=== PATIENT | female | born 1965 | race Caucasian/White ===

== ENCOUNTER 2018-09-25 11:14 | Emergency (ER) | payer OTHER ==
[2018-09-25 11:23] VITALS: BP 125/84; PULSE 84; RESP 18; TEMP 97.6
[2018-09-25] MEDS ORDERED: ACETAMINOPHEN TAB 500 MG TAB PO STA (11:33)
--- NOTE | 2018-09-25 12:04 | ED ---
General Adult HPI - General Chief complaint: Head Injury Stated complaint: head injury Time Seen by Provider: 09/25/18 11:20 Source: patient, RN notes reviewed Mode of arrival: ambulatory Limitations: no limitations - History of Present Illness Initial comments: This is a 52-year-old female who presents to the emergency department complaining that she walked into a 4 x 4 and it knocked the ground. Patient states she did not lose consciousness but she was dazed after she had hit her head. Patient states she has no current headache but just feels a little off. Patient denies any neck pain patient denies numbness weakness. Patient has any injury from the fall. Patient states she struck the 4 x 4 with her forehead on the right side. The 4 x 4 was not moving she was only walking at the time. - Related Data Home Medications Medication Instructions Recorded Confirmed No Known Home Medications 09/25/18 09/25/18 Allergies Allergy/AdvReac Type Severity Reaction Status Date / Time No Known Allergies Allergy Verified 09/25/18 11:54 Review of Systems ROS Statement: Those systems with pertinent positive or pertinent negative responses have been documented in the HPI. ROS Other: All systems not noted in ROS Statement are negative. Past Medical History Past Medical History: No Reported History History of Any Multi-Drug Resistant Organisms: None Reported Past Surgical History: Cholecystectomy Additional Past Surgical History / Comment(s): Shoulder Past Psychological History: No Psychological Hx Reported Smoking Status: Never smoker Past Alcohol Use History: None Reported Past Drug Use History: None Reported General Exam - General Exam Comments Initial Comments: GENERAL: Patient is well-developed and well-nourished. Patient is nontoxic and well- hydrated and is in mild distress. Forehead is mildly tender to palpation no swelling or hematoma noted no abrasion noted ENT: Neck is soft and supple. No significant lymphadenopathy is noted. Oropharynx is clear. Moist mucous membranes. Neck has full range of motion without eliciting any pain. EYES: The sclera were anicteric and conjunctiva were pink and moist. Extraocular movements were intact and pupils were equal round and reactive to light. Eyelids were unremarkable. PULMONARY: Unlabored respirations. Good breath sounds bilaterally. No audible rales rhonchi or wheezing was noted. CARDIOVASCULAR: There is a regular rate and rhythm without any murmurs gallops or rubs. ABDOMEN: Soft and nontender with normal bowel sounds. SKIN: Skin is clear with no lesions or rashes and otherwise unremarkable. NEUROLOGIC: Patient is alert and oriented x3. Cranial nerves II through XII are grossly intact. Motor and sensory are also intact. Normal speech, volume and content. Symmetrical smile. MUSCULOSKELETAL: Normal extremities with adequate strength and full range of motion. LYMPHATICS: No significant lymphadenopathy is noted PSYCHIATRIC: Normal psychiatric evaluation. Limitations: no limitations Course Vital Signs 09/25/18 11:20 Temperature 97.6 F Pulse Rate 84 Respiratory 18 Rate Blood Pressure 125/84 O2 Sat by Pulse 99 Oximetry Medical Decision Making - Medical Decision Making CT of the head shows no acute abnormality. Patient has no headache and no neurologic deficit Disposition Clinical Impression: Closed head injury Disposition: HOME SELF-CARE Condition: Good Instructions (If sedation given, give patient instructions): How to Use and Care for Your PEG Tube (ED), Head Injury (ED) Is patient prescribed a controlled substance at d/c from ED?: No Referrals: Da Haile MD [Primary Care Provider] - 1-2 days Time of Disposition: 12:39
--- NOTE | 2018-09-25 12:27 | CT ---
EXAMINATION TYPE: CT brain wo con DATE OF EXAM: 09/25/2018 COMPARISON: 04/26/2010 INDICATION: Right frontal injury without LOC DLP: 1083.4 mGycm, Automated exposure control for dose reduction was used. CONTRAST: None CT of the brain is performed utilizing 3 mm thick sections through the posterior fossa and 3 mm thick sections through the remaining calvarium. Study is performed within 24 hours of arrival to the hosp ital. No abnormal hyperdensity is present to suggest an acute intracranial hemorrhage. No mass lesion is evident. No acute infarcts are evident. Ventricles and sulci are appropriate for the patient age. Paranasal sinuses and mastoid air cells within the [id number] are clear. No acute fractures are evident. IMPRESSIONS: 1. Normal CT Brain
== END 2018-09-25 12:57 | disposition home or self-care (01) ==
LOC: EC 11:14
DX: S09.90XA Unspecified injury of head, initial encounter (principal); W22.8XXA Striking against or struck by other objects, initial encounter; Y93.01 Activity, walking, marching and hiking
CPT/HCPCS: 70450; 99283

== ENCOUNTER 2019-03-29 13:10 | Observation (INO) | payer OTHER ==
[2019-03-29] MEDS ORDERED: ASPIRIN 81 MG PO STA (14:21)
[2019-03-29] MEDS ORDERED: NITROGLYCERIN OINT 1 INCH/GM PACKET TOPICAL STA (14:21)
--- NOTE | 2019-03-29 14:25 | ED ---
General Adult HPI - General Chief complaint: Chest Pain Stated complaint: Chest Pain Time Seen by Provider: 03/29/19 14:05 Source: patient, RN notes reviewed Mode of arrival: ambulatory Limitations: no limitations - History of Present Illness Initial comments: Patient is a pleasant 53-year-old female presenting to the emergency department chest discomfort. Onset of symptoms was around 10 AM while at work. Symptoms have improved however not completely resolved. Symptoms are only mild at this time. Discomfort is described as heaviness in the chest. There is some numbness of the left arm. Patient states there was some numbness of face earlier. No confusion or weakness. No speech problems. Patient did feel a little bit nauseated and sweaty earlier. Patient does have some associated dyspnea. No history of similar symptoms previously. Patient states her mother just had her stents placed yesterday. - Related Data Home Medications Medication Instructions Recorded Confirmed Naproxen Sodium [Aleve] 440 mg PO DAILY PRN 03/29/19 03/29/19 Allergies Allergy/AdvReac Type Severity Reaction Status Date / Time No Known Allergies Allergy Verified 03/29/19 14:10 Review of Systems ROS Statement: Those systems with pertinent positive or pertinent negative responses have been documented in the HPI. ROS Other: All systems not noted in ROS Statement are negative. Constitutional: Denies: fever Eyes: Denies: eye pain ENT: Denies: ear pain Respiratory: Reports: dyspnea. Denies: cough Cardiovascular: Reports: chest pain Endocrine: Denies: fatigue Gastrointestinal: Reports: nausea. Denies: abdominal pain Genitourinary: Denies: dysuria Musculoskeletal: Denies: back pain Skin: Denies: rash Neurological: Reports: paresthesias. Denies: headache, weakness, confusion Past Medical History Past Medical History: No Reported History History of Any Multi-Drug Resistant Organisms: None Reported Past Surgical History: Cholecystectomy Additional Past Surgical History / Comment(s): Shoulder Past Psychological History: No Psychological Hx Reported Smoking Status: Never smoker Past Alcohol Use History: None Reported Past Drug Use History: None Reported General Exam Limitations: no limitations General appearance: alert, in no apparent distress Head exam: Present: normocephalic Eye exam: Present: normal appearance, PERRL ENT exam: Present: normal oropharynx Neck exam: Present: normal inspection Respiratory exam: Present: normal lung sounds bilaterally. Absent: chest wall tenderness Cardiovascular Exam: Present: regular rate, normal rhythm Expanded Peripheral pulses: 2+: Radial (R), Radial (L), Posterior Tibialis (R), Posterior Tibialis (L), Dorsalis Pedis (R), Dorsalis Pedis (L) GI/Abdominal exam: Present: soft. Absent: distended, tenderness Extremities exam: Present: normal inspection. Absent: pedal edema, calf tenderness Neurological exam: Present: alert, oriented X3, CN II-XII intact. Absent: motor sensory deficit Expanded Neurological exam: Present: protecting the airway Patient oriented to: Present: person, place, time Speech: Present: fluid speech Cranial nerves: EOM's Intact: Normal, Facial Sensation: Normal Sensory exam: Upper Extremity Light Touch: Normal, Lower Extremity Light Touch: Normal Motor strength exam: RUE: 5, LUE: 5, RLE: 5, LLE: 5 Eye Response: (4) open spontaneously Motor Response: (6) obeys commands Verbal Response: (5) oriented Psychiatric exam: Present: normal affect, normal mood Skin exam: Present: normal color Course Vital Signs 03/29/19 03/29/19 03/29/19 13:38 14:00 14:49 Temperature 98.0 F Pulse Rate 57 L 57 L Pulse Rate [ 65 Vice President Of Compliance ] Respiratory 18 18 Rate Blood Pressure 139/78 135/79 O2 Sat by Pulse 100 100 Oximetry EKG Findings - EKG Comments: EKG Findings:: Sinus bradycardia with a rate of 52. Sinus arrhythmia. IA 148. QRS 82. QT 446. QTc 414. Normal axis. Low QRS voltage. No acute ST change. Medical Decision Making - Medical Decision Making Patient reevaluated and resting comfortably in bed. Patient and family updated on results and plan. Case was discussed in detail with Dr. Haile, who will admit his patient. Cardiology consult will be placed. - Lab Data Result diagrams: 03/29/19 14:15 03/29/19 14:15 Lab Results 03/29/19 03/29/19 03/29/19 Range/Units 14:15 14:15 14:15 WBC 7.4 (3.8-10.6) k/uL RBC 4.29 (3.80-5.40) m/uL Hgb 12.8 (11.4-16.0) gm/dL Hct 39.4 (34.0-46.0) % MCV 91.8 (80.0-100.0) fL MCH 29.8 (25.0-35.0) pg MCHC 32.5 (31.0-37.0) g/dL RDW 13.1 (11.5-15.5) % Plt Count 307 (150-450) k/uL Neutrophils % 60 % Lymphocytes % 30 % Monocytes % 5 % Eosinophils % 1 % Basophils % 1 % Neutrophils # 4.5 (1.3-7.7) k/uL Lymphocytes # 2.3 (1.0-4.8) k/uL Monocytes # 0.4 (0-1.0) k/uL Eosinophils # 0.1 (0-0.7) k/uL Basophils # 0.1 (0-0.2) k/uL PT 9.7 (9.0-12.0) sec INR 0.9 (<1.2) APTT 26.6 (22.0-30.0) sec D-Dimer 0.51 (<0.60) mg/L FEU Sodium 139 (137-145) mmol/L Potassium 4.3 (3.5-5.1) mmol/L Chloride 106 (98-107) mmol/L Carbon Dioxide 22 (22-30) mmol/L Anion Gap 11 mmol/L BUN 13 (7-17) mg/dL Creatinine 0.68 (0.52-1.04) mg/dL Est GFR (CKD-EPI)AfAm >90 (>60 ml/min/1.73 sqM) Est GFR (CKD-EPI)NonAf >90 (>60 ml/min/1.73 sqM) Glucose 68 L (74-99) mg/dL Calcium 9.2 (8.4-10.2) mg/dL Magnesium 2.1 (1.6-2.3) mg/dL Total Bilirubin 0.9 (0.2-1.3) mg/dL AST 31 (14-36) U/L ALT 17 (9-52) U/L Alkaline Phosphatase 65 (38-126) U/L Troponin I (0.000-0.034) ng/mL Total Protein 7.7 (6.3-8.2) g/dL Albumin 4.5 (3.5-5.0) g/dL 03/29/19 Range/Units 14:15 WBC (3.8-10.6) k/uL RBC (3.80-5.40) m/uL Hgb (11.4-16.0) gm/dL Hct (34.0-46.0) % MCV (80.0-100.0) fL MCH (25.0-35.0) pg MCHC (31.0-37.0) g/dL RDW (11.5-15.5) % Plt Count (150-450) k/uL Neutrophils % % Lymphocytes % % Monocytes % % Eosinophils % % Basophils % % Neutrophils # (1.3-7.7) k/uL Lymphocytes # (1.0-4.8) k/uL Monocytes # (0-1.0) k/uL Eosinophils # (0-0.7) k/uL Basophils # (0-0.2) k/uL PT (9.0-12.0) sec INR (<1.2) APTT (22.0-30.0) sec D-Dimer (<0.60) mg/L FEU Sodium (137-145) mmol/L Potassium (3.5-5.1) mmol/L Chloride (98-107) mmol/L Carbon Dioxide (22-30) mmol/L Anion Gap mmol/L BUN (7-17) mg/dL Creatinine (0.52-1.04) mg/dL Est GFR (CKD-EPI)AfAm (>60 ml/min/1.73 sqM) Est GFR (CKD-EPI)NonAf (>60 ml/min/1.73 sqM) Glucose (74-99) mg/dL Calcium (8.4-10.2) mg/dL Magnesium (1.6-2.3) mg/dL Total Bilirubin (0.2-1.3) mg/dL AST (14-36) U/L ALT (9-52) U/L Alkaline Phosphatase (38-126) U/L Troponin I <0.012 (0.000-0.034) ng/mL Total Protein (6.3-8.2) g/dL Albumin (3.5-5.0) g/dL - Radiology Data Radiology results: image reviewed (Chest x-ray shows no acute process) Disposition Clinical Impression: Chest pain Disposition: ADMITTED IP TO THIS HOSP Is patient prescribed a controlled substance at d/c from ED?: No Referrals: Da Haile MD [Primary Care Provider] - 1-2 days Decision Time: 16:39
--- NOTE | 2019-03-29 14:37 | XR ---
EXAMINATION TYPE: XR chest 2V DATE OF EXAM: 03/29/2019 COMPARISON: None HISTORY: 53-year-old female with chest pain TECHNIQUE: PA and lateral views FINDINGS: The cardiomediastinal silhouette, aorta, and pulmonary vasculature are within normal limits. Lungs an d pleural spaces are clear. IMPRESSION: No acute cardiopulmonary process.
[2019-03-29 16:04] LABS: ALT 17 U/L (9-52); AST 31 U/L (14-36); African American GFR (CKD) >90 (>60 ml/min/1.73 sqM); Albumin 4.5 g/dL (3.5-5.0); Alkaline Phosphatase 65 U/L (38-126); Anion Gap 11 mmol/L; Blood Urea Nitrogen 13 mg/dL (7-17); Calcium 9.2 mg/dL (8.4-10.2); Carbon Dioxide 22 mmol/L (22-30); Chloride 106 mmol/L (98-107); Glucose 68 mg/dL (74-99); Magnesium 2.1 mg/dL (1.6-2.3); Non-African American GFR(CKD) >90 (>60 ml/min/1.73 sqM); Sodium 139 mmol/L (137-145); Total Bilirubin 0.9 mg/dL (0.2-1.3); Total Protein 7.7 g/dL (6.3-8.2)
[2019-03-29 16:16] LABS: Potassium 4.3 mmol/L (3.5-5.1)
[2019-03-29 16:17] LABS: D-Dimer 0.51 mg/L FEU (<0.60); INR 0.9 (<1.2); Partial Thromboplastin Time 26.6 sec (22.0-30.0); Prothrombin Time 9.7 sec (9.0-12.0)
[2019-03-29 16:21] LABS: Basophils # (A) 0.1 k/uL (0-0.2); Basophils % (A) 1 %; Eosinophils # (A) 0.1 k/uL (0-0.7); Eosinophils % (A) 1 %; HCT 39.4 % (34.0-46.0); HGB 12.8 gm/dL (11.4-16.0); Lymphocytes # (A) 2.3 k/uL (1.0-4.8); Lymphocytes % (A) 30 %; MCH 29.8 pg (25.0-35.0); MCHC 32.5 g/dL (31.0-37.0); MCV 91.8 fL (80.0-100.0); Mean Platelet Volume 6.9; Monocytes # (A) 0.4 k/uL (0-1.0); Monocytes % (A) 5 %; Neutrophils # (A) 4.5 k/uL (1.3-7.7); Neutrophils % (A) 60 %; Platelet Count 307 k/uL (150-450); RBC 4.29 m/uL (3.80-5.40); RDW 13.1 % (11.5-15.5); WBC 7.4 k/uL (3.8-10.6)
[2019-03-29] MEDS ORDERED: NITROGLYCERIN SL TABS 0.4 MG TAB SUBLINGUAL PRN (16:40)
[2019-03-29] MEDS: NITROGLYCERIN OINT 1 INCH/GM PACKET TOPICAL SCH ×2 (17:28→23:32)
[2019-03-29] MEDS ORDERED: ACETAMINOPHEN TAB 325 MG TAB PO PRN (19:54)
[2019-03-30 03:03] LABS: Cholesterol 163 mg/dL (<200); HDL Cholesterol 45 mg/dL (40-60); LDL Cholesterol,Calculated 89 mg/dL (0-99); Triglycerides 144 mg/dL (<150)
[2019-03-30] MEDS: NITROGLYCERIN OINT 1 INCH/GM PACKET TOPICAL SCH (05:07)
[2019-03-30 08:03] VITALS: RESP 16
[2019-03-30] MEDS ORDERED: ASPIRIN 325 MG TAB PO SCH (09:00)
[2019-03-30 11:57] VITALS: BP 96/65; TEMP 97.8
[2019-03-30 12:24] VITALS: PULSE 53
--- NOTE | 2019-03-30 12:34 | CT ---
EXAMINATION TYPE: CT brain wo con DATE OF EXAM: 03/30/2019 COMPARISON: 09/25/2018 HISTORY: 53-year-old female Left side weakness TECHNIQUE: Examination was done in axial plane without intravenous contrast. Coronal and sagittal r econstructions performed. CT DLP: 1068.4 mGycm Automated exposure control for dose reduction was used. FINDINGS: There is no evidence of acute intracranial hemorrhage, acute ischemic changes, mass, mass-effect, or extra-axial fluid collection. There is no effacement of cerebral sulci or basal subarachnoid cister ns. There is no hydrocephalus. There is no midline shift. Byrd-white matter distinction is preserv ed. Paranasal sinuses and mastoid air cells well pneumatized. Orbits and globes are intact. IMPRESSION: No acute intracranial abnormality seen. If symptoms persist, follow-up CT or MRI.
--- NOTE | 2019-03-30 13:05 | P.CRDCN ---
History of Present Illness History of present illness: This is a pleasant 53-year-old female past medical history former nicotine dependence. She denies prior history of coronary artery disease, hypertension, dyslipidemia or diabetes mellitus. She does not follow with a bi data architect for any reason. We have been asked to see her in consultation secondary to chest discomfort. She states she woke up yesterday morning feeling essentially normal however as her day progressed she felt increasingly fatigued even she had a decent night's sleep. She then noticed a numb tingling sensation in the left side of her face and down her left arm. At just about the same time she felt a heaviness in the midsternal portion of her chest associated with nausea and diaphoresis and some rapid heartbeat. Chest discomfort was intermittent initially however has become more constant last night. This morning the chest pain has resolved however she continues to have numbness and tingling in the left hand. EKG reveals sinus bradycardia heart rate of 52. Chest x-ray is negative for an acute cardiopulmonary process. Laboratory data reviewed, CBC unremarkable, d-dimer 0.51, cardiac enzymes negative 3, magnesium 2.1, creatinine 0.68, sodium 139, potassium 4.3 and LDL 89. She takes no daily cardiac medications. At the time of my exam: CONSTITUTIONAL: Denies fever. Denies chills. EYES: Denies blurred vision. Denies vision changes. Denies eye pain. EARS, NOSE, MOUTH & THROAT: Denies headache. Denies sore throat. Denies ear pain. CARDIOVASCULAR: Denies chest pain. Denies shortness of breath. Denies orthopnea. Denies PND. Denies palpitations. RESPIRATORY: Denies cough. GASTROINTESTINAL: Denies abdominal pain. Denies diarrhea. Denies constipation. Denies nausea. Denies vomiting. MUSCULOSKELETAL: Complains of left hand numbness and tingling. INTEGUMENTARY: Denies pruitis. Denies rash. NEUROLOGIC: Denies numbness. Denies tingling. Denies weakness. PSYCHIATRIC: Denies anxiety. Denies depression. ENDOCRINE: Denies fatigue. Denies weight change. Denies polydipsia. Denies polyurina. GENITOURINARY: Denies burning, hematuria or urgency with micturation. HEMATOLOGIC: Denies history of anemia. Denies bleeding. Blood pressure 96/65 heart rate 66 afebrile maintaining oxygen saturation on room air GENERAL: This is a 53-year-old female in no apparent distress at the time of my examination. HEENT: Head is atraumatic, normocephalic. Pupils are equal, round. Sclerae anicteric. Conjunctivae are clear. Mucous membranes of the mouth are moist. Neck is supple. There is no jugular venous distention. No carotid bruit is heard. LUNGS: Clear to auscultation no wheezes, rales or rhonchi. No chest wall tenderness is noted on palpation or with deep breathing. HEART: Regular rate and rhythm without murmurs, rubs or gallops. S1 and S2 heard. ABDOMEN: Soft, nontender. Bowel sounds are heard. No organomegaly noted. EXTREMITIES: No evidence of peripheral edema and no calf tenderness noted. VASCULAR: Radial and dorsalis pedis pulses palpated, no evidence of clubbing. NEUROLOGIC: Patient is awake, alert and oriented x3. ASSESSMENT Chest pain, atypical. An acute coronary event has been ruled out. PLAN Perform stress echocardiogram to assess her stress induced cardiac ischemia. Medical evaluation by the primary care team regarding left-sided numbness and tingling. If stress test is normal she is stable from a cardiac perspective. Thank you kindly for this consultation. Nurse Practitioner note has been reviewed, I agree with a documented findings and plan of care. Patient was seen and examined. Past Medical History Past Medical History: No Reported History History of Any Multi-Drug Resistant Organisms: None Reported Past Surgical History: Cholecystectomy Additional Past Surgical History / Comment(s): Shoulder Past Psychological History: No Psychological Hx Reported Smoking Status: Former smoker Past Alcohol Use History: None Reported Past Drug Use History: None Reported Medications and Allergies Home Medications Medication Instructions Recorded Confirmed Type Naproxen Sodium [Aleve] 440 mg PO DAILY PRN 03/29/19 03/29/19 History Allergies Allergy/AdvReac Type Severity Reaction Status Date / Time No Known Allergies Allergy Verified 03/29/19 14:10 Physical Exam Vitals: Vital Signs Temp Pulse Pulse Pulse Resp BP BP 03/30/19 07:25 97.9 F 57 L 16 97/58 03/30/19 04:00 98.1 F 53 L 18 93/53 03/30/19 03:28 18 03/30/19 00:00 18 03/29/19 23:22 98.3 F 68 18 100/62 03/29/19 20:00 18 03/29/19 17:53 97.5 F L 56 L 18 128/78 03/29/19 17:00 56 L 18 114/69 03/29/19 14:49 57 L 18 135/79 03/29/19 14:00 65 03/29/19 13:38 98.0 F 57 L 18 139/78 Pulse Ox 03/30/19 07:25 97 03/30/19 04:00 98 03/30/19 03:28 03/30/19 00:00 03/29/19 23:22 98 03/29/19 20:00 03/29/19 17:53 100 03/29/19 17:00 98 03/29/19 14:49 100 03/29/19 14:00 03/29/19 13:38 100 Intake and Output 03/29/19 03/30/19 03/30/19 22:59 06:59 14:59 Intake Total 600 Balance 600 Intake: Oral 600 Other: # Voids 1 Results 03/29/19 14:15 03/29/19 14:15 Cardiac Enzymes 03/29/19 03/29/19 03/29/19 Range/Units 14:15 14:15 20:33 AST 31 (14-36) U/L Troponin I <0.012 <0.012 (0.000-0.034) ng/mL 03/30/19 Range/Units 02:20 AST (14-36) U/L Troponin I <0.012 (0.000-0.034) ng/mL Coagulation 03/29/19 Range/Units 14:15 PT 9.7 (9.0-12.0) sec APTT 26.6 (22.0-30.0) sec Lipids 03/30/19 Range/Units 02:20 Triglycerides 144 (<150) mg/dL Cholesterol 163 (<200) mg/dL HDL Cholesterol 45 (40-60) mg/dL CBC 03/29/19 Range/Units 14:15 WBC 7.4 (3.8-10.6) k/uL RBC 4.29 (3.80-5.40) m/uL Hgb 12.8 (11.4-16.0) gm/dL Hct 39.4 (34.0-46.0) % Plt Count 307 (150-450) k/uL Comprehensive Metabolic Panel 03/29/19 Range/Units 14:15 Sodium 139 (137-145) mmol/L Potassium 4.3 (3.5-5.1) mmol/L Chloride 106 (98-107) mmol/L Carbon Dioxide 22 (22-30) mmol/L BUN 13 (7-17) mg/dL Creatinine 0.68 (0.52-1.04) mg/dL Glucose 68 L (74-99) mg/dL Calcium 9.2 (8.4-10.2) mg/dL AST 31 (14-36) U/L ALT 17 (9-52) U/L Alkaline Phosphatase 65 (38-126) U/L Total Protein 7.7 (6.3-8.2) g/dL Albumin 4.5 (3.5-5.0) g/dL Current Medications Generic Name Dose Route Start Last Admin Trade Name Freq PRN Reason Stop Dose Admin Acetaminophen 650 mg 03/29/19 19:54 Tylenol Tab PO Q4HR PRN Fever and/ or Mild Pain Aspirin 325 mg 03/30/19 09:00 Aspirin PO DAILY BRANDAN Nitroglycerin 0.4 mg 03/29/19 16:40 03/29/19 20:02 Nitrostat SUBLINGUAL 0.4 mg Q5M PRN Administration Chest Pain Nitroglycerin 1 inch 03/29/19 18:00 03/30/19 05:07 Nitro-Bid Oint TOPICAL 1 inch Q6HR BRANDAN Administration Intake and Output 03/29/19 03/30/19 03/30/19 22:59 06:59 14:59 Intake Total 600 Balance 600 Intake: Oral 600 Other: # Voids 1 03/29/19 14:15 03/29/19 14:15
--- NOTE | 2019-03-30 13:16 | XR ---
EXAMINATION TYPE: XR cervical spine comp DATE OF EXAM: 03/30/2019 TECHNIQUE: Frontal, lateral, oblique, swimmers, and open mouth view of the cervical spine are obtaine d. HISTORY: left neck pain COMPARISON: None FINDINGS: The cervical spine is visualized in its entirety from C1 thru the top of T1 level, it is s atisfactory in alignment without evidence of acute fracture or dislocation. The pre-vertebral soft t issue appears within normal limits. Small anterior osteophytes and intervertebral disc space narrowi ng are seen at C6-C7. The C1-C2 articulation is within normal limits on the open mouth view. The obl ique images are within normal limits. IMPRESSION: No acute fracture or dislocation is seen in the cervical spine. Mild degenerative disc d isease at C6-C7.
--- NOTE | 2019-03-30 16:14 | P.HPIM ---
History of Present Illness H&P Date: 03/30/19 Chief Complaint: Chest pain HISTORY AND PHYSICAL AND DISCHARGE SUMMARY: This is a 53-year-old female patient of Dr. Stuart Haile with past medical history of back pain. 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 She complains of left-sided neck pain as well and weakness in her left arm which is her dominant arm. She admits to increased stress with her business as well as with her parents medical issue s. Patient came into [facility] emergency center for evaluation. Troponins negative on 3 draws. Troponin 144, cholesterol 163, total DL 89, HDL 45. EKG is a sinus bradycardia. Chest x-ray shows no acute findings. CT of the brain showed no acute intracranial abnormality. Cervical x-ray showed no acute fracture or dislocation. Mild degenerative disc disease at C6-C7. Patient was seen by cardiology and underwent a stress echo which was negative and patient was cleared for discharge home. No medication changes have been made. Review of Systems Constitutional: Denies chills, Denies fatigue, Denies fever, Denies lethargy, Denies malaise, Denies poor appetite, Denies weight loss Eyes: denies blurred vision, denies pain Ears, nose, mouth and throat: Denies headache, Denies nasal discharge, Denies sore throat, Denies vertigo Cardiovascular: Reports chest pain, Denies decreased exercise tolerance, Denies dyspnea on exertion, Denies edema, Denies irregular heart beat, Denies leg edema, Denies lightheadedness, Denies palpitations, Denies shortness of breath, Denies syncope Respiratory: Denies cough, Denies cough with sputum, Denies dyspnea, Denies excessive sputum, Denies hemoptysis, Denies home oxygen, Denies wheezing Gastrointestinal: Denies abdominal pain, Denies bloating, Denies diarrhea, Chase es loss of appetite, Denies melena, Denies nausea, Denies vomiting Genitourinary: Denies dysuria, Denies hematuria, Denies urinary frequency Musculoskeletal: Denies frequent falls, Denies gait dysfunction, Denies muscle weakness, Denies myalgias Integumentary: Denies pruritus, Denies rash, Denies wounds Neurological: Denies change in mentation, Denies change in speech, Denies numbness, Denies weakness Psychiatric: Denies anxiety, Denies depression Endocrine: Denies fatigue, Denies weight change Past Medical History Past Medical History: No Reported History History of Any Multi-Drug Resistant Organisms: None Reported Past Surgical History: Cholecystectomy Additional Past Surgical History / Comment(s): Shoulder Past Psychological History: No Psychological Hx Reported Smoking Status: Former smoker Past Alcohol Use History: None Reported Past Drug Use History: None Reported - Past Family History Father Additional Family Medical History / Comment(s): Father is age 82 with history of 3 coronary stents. Mother Additional Family Medical History / Comment(s): Mother is alive at age 80 with history of coronary artery disease and non-ST elevated MS. Brother(s) Additional Family Medical History / Comment(s): Patient has 2 brothers and one his had Munoz's palsy. Patient does not have any sisters. No children. Medications and Allergies Home Medications Medication Instructions Recorded Confirmed Type Naproxen Sodium [Aleve] 440 mg PO DAILY PRN 03/29/19 03/29/19 History Allergies Allergy/AdvReac Type Severity Reaction Status Date / Time No Known Allergies Allergy Verified 03/29/19 14:10 Physical Exam Vitals: Vital Signs Temp Pulse Pulse Pulse Resp BP BP 03/30/19 08:00 53 L 57 L 16 03/30/19 07:25 97.9 F 57 L 16 97/58 03/30/19 04:00 98.1 F 53 L 18 93/53 03/30/19 03:28 18 03/30/19 00:00 18 03/29/19 23:22 98.3 F 68 18 100/62 03/29/19 20:00 18 03/29/19 17:53 97.5 F L 56 L 18 128/78 03/29/19 17:00 56 L 18 114/69 03/29/19 14:49 57 L 18 135/79 03/29/19 14:00 65 03/29/19 13:38 98.0 F 57 L 18 139/78 Pulse Ox 03/30/19 08:00 03/30/19 07:25 97 03/30/19 04:00 98 03/30/19 03:28 03/30/19 00:00 03/29/19 23:22 98 03/29/19 20:00 03/29/19 17:53 100 03/29/19 17:00 98 03/29/19 14:49 100 03/29/19 14:00 03/29/19 13:38 100 Intake and Output 03/29/19 03/30/19 03/30/19 22:59 06:59 14:59 Intake Total 600 Balance 600 Intake: Oral 600 Other: Voiding Method Toilet # Voids 1 Gen: This is a 53-year-old female. Patient is resting bed appears to be comfortable and in no acute distress. HEENT: Head is atraumatic, normocephalic. Pupils equal, round. Sclerae is anicteric. NECK: Supple. No JVD. No lymphadenopathy. No thyromegaly. LUNGS: Clear to auscultation. No wheezes or rhonchi. No intercostal retractions. HEART: Regular rate and rhythm. No murmur. ABDOMEN: Soft. Bowel sounds are present. No masses. No tenderness. EXTREMITIES: No pedal edema. No calf tenderness. Dorsalis pedis +2 bilaterally. NEUROLOGICAL: Patient is awake, alert and oriented x3. Cranial nerves 2 through 12 are grossly intact. Very slight weakness in the left hand emergency department versus right. Foot push pull equal and strong. Results CBC & Chem 7: 03/29/19 14:15 03/29/19 14:15 Labs: Abnormal Lab Results - Last 24 Hours (Table) 03/29/19 Range/Units 14:15 Glucose 68 L (74-99) mg/dL Thrombosis Risk Factor Assmnt - Choose All That Apply Any of the Below Risk Factors Present?: Yes Each Factor Represents 1 point: Age 41-60 years Other Risk Factors: No Thrombosis Risk Factor Assessment Total Risk Factor Score: 1 Thrombosis Risk Factor Assessment Level: Low Risk Assessment and Plan Plan: 1. Chest pain with negative troponins. Cardiology consult appreciated. Stress testing negative. 2. Left arm weakness and heaviness most likely due to C6/7 degenerative changes. 3. Left facial numbness. Patient placed as an observation status. Discharge plan: home Impression and plan of care have been directed as dictated by the signing physician. Aminata Holly nurse practitioner acting as scribe for signing physician.
--- NOTE | 2019-04-02 08:39 | ECHOF ---
Referral Reason:LVF MEASUREMENTS -------- HEIGHT: 162.6 cm WEIGHT: 72.6 kg BP: 91/58 RVIDd: 3.7 cm (< 3.3) IVSd: 1.0 cm (0.6 - 1.1) LVIDd: 3.6 cm (3.9 - 5.3) LVPWd: 1.3 cm (0.6 - 1.1) IVSs: 1.5 cm LVIDs: 2.6 cm LVPWs: 1.5 cm LAESV Index (A-L): 18.32 ml/m Ao Diam: 2.6 cm (2.0 - 3.7) AV Cusp: 1.7 cm (1.5 - 2.6) LA Diam: 2.9 cm (2.7 - 3.8) MV EXCURSION: 12.148 mm (> 18.000) MV EF SLOPE: 88 mm/s (70 - 150) EPSS: 0.5 cm MV E Sandeep: 1.01 m/s MV DecT: 197 ms MV A Sandeep: 1.04 m/s MV E/A Ratio: 0.98 RAP: 5.00 mmHg RVSP: 35.06 mmHg FINDINGS -------- Sinus rhythm. This was a technically good study. The left ventricular size is normal. There is mild concentric left ventricular hypertrophy. Overa ll left ventricular systolic function is normal with, an EF between 55 - 60 %. The diastolic fillin g pattern is normal for the age of the patient 10.48. The right ventricle is mildly enlarged. Normal LA size by volume 22+/-6 ml/m2. The right atrium is mildly enlarged. Interatrial and interventricular septum intact. The aortic valve was not well visualized. There is no evidence of aortic regurgitation. There is no evidence of aortic stenosis. There is trace mitral regurgitation. Mild tricuspid regurgitation present. There is mild pulmonary hypertension. The right ventricular systolic pressure, as measured by Doppler, is 35.06mmHg. There is no pulmonic regurgitation present. The aortic root size is normal. Normal inferior vena cava with normal inspiratory collapse consistent with estimated right atrial pre ssure of 5 mmHg. There is no pericardial effusion. CONCLUSIONS -------- 1. Sinus rhythm. 2. This was a technically good study. 3. The left ventricular size is normal. 4. There is mild concentric left ventricular hypertrophy. 5. Overall left ventricular systolic function is normal with, an EF between 55 - 60 %. 6. The diastolic filling pattern is normal for the age of the patient 10.48 7. The right ventricle is mildly enlarged. 8. Normal LA size by volume 22+/-6 ml/m2. 9. The right atrium is mildly enlarged. 10. Interatrial and interventricular septum intact. 11. The aortic valve was not well visualized. 12. There is no evidence of aortic regurgitation. 13. There is no evidence of aortic stenosis. 14. There is trace mitral regurgitation. 15. Mild tricuspid regurgitation present. 16. There is mild pulmonary hypertension. 17. The right ventricular systolic pressure, as measured by Doppler, is 35.06mmHg. 18. There is no pulmonic regurgitation present. 19. The aortic root size is normal. 20. Normal inferior vena cava with normal inspiratory collapse consistent with estimated right atrial pressure of 5 mmHg. 21. There is no pericardial effusion. BOBBIN DUMPER: Lucía Gooden RDCS
--- NOTE | 2019-04-02 12:16 | ECHOS ---
- Stress Test Note Stress Test Results/Findings: Exam Performed: stress echo exercise Exam Date: 03/30/19 Reason for Exam: CHEST PAIN Height: 5 ft 4 in Weight: 72.575 kg Protocol: STRESS ECHO Stage: 3 Duration of Exercise: 10:35 MINUTES Resting Heart Rate: 63 Resting Blood Pressure: 121/75 Maximum Achieved Heart Rate: 156 Maximum Achieved Blood Pressure: 140/68 85% PMHR: 143 100% PMHR: 168 METS: 12.1 Technologist Comment: Stress Test Results/Findings: This is a 53-year-old female with history of smoking and family history of ischemic heart disease who is admitted to the hospital with complaints of chest pain. Cardiac enzymes and EKGs are negative. Stress test: Blood pressure at rest is 121/75, pulse rate of 63. Baseline EKG showed sinus rhythm with normal TX interval, QRS duration. Blood pressure at rest is 121/75, pulse rate of 63. Patient walked on the Gus protocol for 10 minutes and 35 seconds achieving a maximum heart rate of 156 with blood pressure 140/68. EKGs taken during and after exercise did not reveal any significant changes from the baseline. Patient complained of mild vague chest discomfort at peak exercise. Echo data: Baseline echo images show normal wall motion and thickening. Exercise echo images showed augmentation of wall motion and thickening in all the segments. Final impression: #1. Negative stress test #2. Negative stress echo. MADIHA
== END 2019-03-30 14:17 | disposition home or self-care (01) ==
LOC: EC 13:10 → 1SOBS 16:40
PROVIDERS: ADMIT Internal Medicine; ATTEND Internal Medicine
DX: R07.89 Other chest pain (principal); R06.00 Dyspnea, unspecified; R11.0 Nausea; R20.2 Paresthesia of skin; R20.0 Anesthesia of skin; R53.83 Other fatigue; R61 Generalized hyperhidrosis; M54.9 Dorsalgia, unspecified; R00.1 Bradycardia, unspecified; R53.1 Weakness; M50.323 Other cervical disc degeneration at C6-C7 level; Z79.1 Long term (current) use of non-steroidal anti-inflammatories (NSAID); Z90.49 Acquired absence of other specified parts of digestive tract; Z87.891 Personal history of nicotine dependence; Z82.49 Family history of ischemic heart disease and other diseases of the circulatory system; Z82.0 Family history of epilepsy and other diseases of the nervous system
CPT/HCPCS: 93005 ×2; 99285; 36415; 93306; 93351; 85379; 80061; 80053; 83735; 84484 ×2; 85025; 85610; 85730; 72050; 71046; 70450; G0378 ×2